=== PATIENT | male | born 1990 | race Caucasian/White ===

== ENCOUNTER 2020-12-18 15:49 | Emergency (ER) | payer SELFPAY ==
[~2020-12-18] VITALS: Ht 177.8 cm; Wt 77.1 kg
== END 2020-12-18 18:19 | disposition home or self-care (01) ==
LOC: ER 15:49
DX: S71.112A Laceration without foreign body, left thigh, initial encounter (principal); S01.81XA Laceration without foreign body of other part of head, initial encounter; S41.112A Laceration without foreign body of left upper arm, initial encounter; S41.111A Laceration without foreign body of right upper arm, initial encounter; S81.812A Laceration without foreign body, left lower leg, initial encounter; S81.811A Laceration without foreign body, right lower leg, initial encounter; W19.XXXA Unspecified fall, initial encounter; Y93.01 Activity, walking, marching and hiking
CPT/HCPCS: 12002; 72070; 73562-LT; 99283-25